=== PATIENT | female | born 1995 | race Caucasian/White ===

== ENCOUNTER 2017-06-14 23:11 | Day surgery (SDC) | payer OTHER ==
[~2017-06-14] VITALS: Ht 157.5 cm; Wt 77.3 kg
[2017-06-15] MEDS ORDERED: KETOROLAC 60 MG/2 ML VIAL (J1885) IM ONE (00:15)
[2017-06-15 01:25] LABS: BASO # 0.1 10^3/uL (0.0-0.2); BASO % 0.7 % (0.0-1.0); EOS # 0.1 10^3/uL (0.0-0.50); EOS % 1.2 % (0.0-3.0); IMMATURE GRANULOCYTE % 0.4 % (0-0); LYMPH # 2.5 10^3/uL (1.5-6.5); LYMPH % 29.2 % (24.0-44.0); MEAN CORPUSCULAR HEMOGLOBIN 30.3 pg (27.0-33.0); MEAN CORPUSCULAR HGB CONC 33.7 g/dl (32.0-36.5); MEAN CORPUSCULAR VOLUME 89.8 fl (80.0-96.0); MONO # 0.6 10^3/uL (0.0-0.8); MONO % 6.9 % (0.0-5.0); NEUTROPHILS # 5.2 10^3/uL (1.8-7.7); NEUTROPHILS % 61.6 % (36.0-66.0); PLATELET COUNT, AUTOMATED 262 10^3/uL (150-450); RED CELL DISTRIBUTION WIDTH 12.6 % (11.5-14.5); WHITE BLOOD COUNT 8.4 10^3/uL (4.0-10.0)
[2017-06-15 01:48] LABS: ALBUMIN 3.7 GM/DL (3.2-5.2); ALBUMIN/GLOBULIN RATIO 1.06 (1.00-1.93); ALKALINE PHOSPHATASE 69 U/L (45-117); ALT/SGPT 33 U/L (12-78); ANION GAP 8 MEQ/L (8-16); AST/SGOT 16 U/L (7-37); BILIRUBIN,TOTAL 0.3 MG/DL (0.2-1.0); BLOOD UREA NITROGEN 9 MG/DL (7-18); CARBON DIOXIDE LEVEL 26 MEQ/L (21-32); CHLORIDE LEVEL 109 MEQ/L (98-107); CREATININE FOR GFR 0.65 MG/DL (0.55-1.02); GLOMERULAR FILTRATION RATE > 60.0 (>60); GLUCOSE, FASTING 93 MG/DL (70-105); SODIUM LEVEL 143 MEQ/L (136-145); TOTAL PROTEIN 7.2 GM/DL (6.4-8.2)
--- NOTE | 2017-06-15 03:00 | REPUSA ---
CLINICAL HISTORY: Pain. TECHNIQUE: Realtime sonographic images were obtained in multiple projections. COMMENTS: The liver is demonstrates increased echogenicity compatible with fatty infiltration. Multiple hepatic hypoechoic areas seen measuring 2.2 and 4.2 cm. There is no intra or extrahepatic biliary ductal dilatation. CBD measures mm. The gallbladder is di stended containing gallstones and positive sonographic Jacobo. physiologically distended without evidence of calculi. The gallbladder wall is not thickened measurin g 2 mm and there is no pericholecystic fluid. The right kidney is unremarkable. IMPRESSION: Fatty liver. Cholelithiasis. Possible developing acute cholecystitis. Hypoechoic liver lesions are noted within the abdomen. Focal fatty sparing versus infiltrative liver disease. Thank you for your kind referral of this patient.
[2017-06-15] MEDS ORDERED: NORCO 5/325MG TABLET (BULK FOR ED) PO ONE (04:00)
[2017-06-15] MEDS ORDERED: VICO5TAB16 PO (04:00)
[2017-06-15] MEDS ORDERED: MORPHINE 4 MG/ML 1ML SYRINGE IV ONE (05:00)
[2017-06-15 06:17] LABS: CONTROL LINE HCG INT CTR LINE PRESENT
[2017-06-15] MEDS ORDERED: ONDANSETRON 4MG/2ML VIAL (J2405) IV PRN ×2 (09:15→14:45)
[2017-06-15] MEDS ORDERED: AVIATAB PO (09:25)
[2017-06-15] MEDS ORDERED: ESCI20TA PO (09:25)
[2017-06-15] MEDS ORDERED: UNASYN 3 GM VIAL As Ordered ONE (09:30)
[2017-06-15] MEDS: AMPICILLIN SOD/SULBACTAM SOD 3 GM in D5W MINI-BAG PLUS 100 ML IV SCH ×3 (09:45→21:55)
[2017-06-15] MEDS: LR 1,000 ML IV SCH ×2 (10:05→19:38)
[2017-06-15 10:10] VITALS: BP 120/75
--- NOTE | 2017-06-15 10:15 | HPE ---
DATE OF ADMISSION: 06/15/2017 The patient is being placed on surgical day care status. HISTORY OF PRESENT ILLNESS: The patient is a 21-year-old woman who presented to the emergency department just before midnight on 06/14/2017 complaining of right sided back and flank pain radiating around the front to the level of the umbilicus. She describes that she has had occasional episodes of similar pain over the last few months perhaps. The last episode was on night, 06/13/2017. This began in the evening and lasted for 6 or 7 hours overnight. She did have some associated nausea, but no vomiting. The pain had resolved by about 6 o'clock in the morning on the . The patient reports that at about 6:00 p.m. on the , she noted recurrence of the pain. Again, this started in the right side of the back and then radiated around the flank to the right upper quadrant. After tolerating this for approximately 5 hours, she came to the emergency department. She did report some improvement with medications, but as the pain medications wore off the pain returned. She has had some nausea, but no vomiting. She denies any history of jaundice, pancreatitis or hepatitis. She has not been told of gallstones previously. In the emergency department, she had some lab work obtained that was unremarkable. A gallbladder ultrasound shows gallstones. There are two hypoechoic areas within the right lobe of the liver. These are not simple cyst. The gallbladder wall was not particularly thickened at the time of the ultrasound which was obtained after perhaps 6-8 hours of pain. The common bile duct was normal size. As she continues to complain of pain and has some persistent tenderness in the right subcostal area, she is now being brought into the hospital with a diagnosis of acute cholecystitis for treatment with antibiotics and laparoscopic cholecystectomy. ALLERGIES: The patient reports an allergy to LATEX. She reports that perhaps a 10-minute exposure to latex will lead to a rash. She also reports an allergy to PERTUSSIS VACCINE. MEDICATIONS: Her only medications are 20 mg of Lexapro daily and she takes Aviane as a control medication. PAST SURGICAL HISTORY: She had a section in December 2016 and had what she described as a patella replacement in 2014. MEDICAL HISTORY: She has a history of some depression for which she takes her current Lexapro. She denies any other active medical issues. SOCIAL HISTORY: The patient is accompanied to the emergency department by her spouse. Her 5-month-old child was being cared for by her [id number]. The patient is a never smoker and denies any alcohol use. REVIEW OF SYSTEMS: Reveals no history of chest pains or palpitations. She denies cough, wheezing or sputum production. She has no history of seizures, stroke or severe headaches. She denies any dysuria, hematuria or renal stones. She has not had any chronic diarrhea, constipation or rectal bleeding. There are no significant bone or joint issues at this time. She denies any history of deep vein thrombosis (DVT) or pulmonary embolus. PHYSICAL EXAMINATION: The patient's most recent vital signs show that she has been afebrile. Her pulse has been in the 80s to 90s. Blood pressure is normal. She is alert and oriented. She appears somewhat uncomfortable sitting on the ER stretcher. She reports that the pain medication has been wearing off and she has one hand pressed to her right upper quadrant and is rocking quietly on the side of the stretcher. Sclerae are anicteric. Mucous membranes are somewhat tacky. The neck is supple without mass or bruit. Heart exam shows a regular rhythm. The lungs are clear. The abdomen is mildly obese. She has some striae present. She has some bowel sounds. The abdomen is soft throughout. There is some mild tenderness to percussion in the right subcostal area. With palpation, there is some mild referred tenderness from the left upper quadrant to the right upper quadrant. She has moderate direct tenderness in the right subcostal area on palpation. No mass is appreciated. She has no evident hernia. Extremities show no peripheral edema and she has palpable posterior tibial pulses bilaterally and palpable radial pulses bilaterally. LABORATORY STUDIES: Her CBC from 1 o'clock in the morning shows a white count of 8.4 with a differential showing 62% neutrophils, 29% lymphocytes and 7% monocytes. Hemoglobin is 14 with a hematocrit of 41 and the platelet count is 262,000. Urinalysis shows no evidence for a urinary tract infection. Chemistries show a sodium of 143, potassium 4.0, chloride 109, CO2 of 26, BUN of 9, creatinine 0.6 and a glucose of 93. Liver function tests are normal with a total protein of 7.2 and an albumin of 3.7. Lipase is normal at 145. She had an hCG which was negative. Gallbladder ultrasound, I reviewed personally. She has definite stones layering within the gallbladder. The gallbladder wall was not thickened at the time of the study. The gallbladder is somewhat full. There are two abnormal areas within the liver which the radiologist described as hypoechoic, possibly representing focal fatty sparing versus other. IMPRESSION: 1. Acute cholecystitis secondary to cholelithiasis. 2. History of depression, on medication. 3. Hypoechoic liver lesions requiring further study. PLAN: The patient and I discussed options for treatment. She appears to be uncomfortable enough to warrant admission to the hospital. I will start her on Unasyn and then make plans for a laparoscopic cholecystectomy, which I would hope to accomplish later today. She was counseled for the surgery to include the risks and possible benefits. She will be kept nothing by mouth (n.p.o.) for now with IV fluid. We will apply some thromboembolic deterrent stockings (TEDS) on admission and use sequential stockings in the operating room for DVT prophylaxis.
[2017-06-15] MEDS: MORPHINE 2 MG/ML 1ML SYRINGE IV PRN ×3 (10:32→19:02)
[2017-06-15] MEDS: KETOROLAC 30 MG/ML VIAL (J1885) IV PRN ×2 (10:32→19:02)
[2017-06-15 11:52] LABS: ALBUMIN 3.5 GM/DL (3.2-5.2); ALBUMIN/GLOBULIN RATIO 1.13 (1.00-1.93); ALKALINE PHOSPHATASE 52 U/L (45-117); ALT/SGPT 31 U/L (12-78); ANION GAP 7 MEQ/L (8-16); AST/SGOT 18 U/L (7-37); BILIRUBIN,TOTAL 0.4 MG/DL (0.2-1.0); BLOOD UREA NITROGEN 8 MG/DL (7-18); CALCIUM LEVEL 8.6 MG/DL (8.5-10.1); CARBON DIOXIDE LEVEL 25 MEQ/L (21-32); CHLORIDE LEVEL 110 MEQ/L (98-107); GLOMERULAR FILTRATION RATE > 60.0 (>60); GLUCOSE, FASTING 85 MG/DL (70-105); POTASSIUM SERUM 3.9 MEQ/L (3.5-5.1); SODIUM LEVEL 142 MEQ/L (136-145); TOTAL PROTEIN 6.6 GM/DL (6.4-8.2)
[2017-06-15] MEDS ORDERED: BUPIVACAINE HCL 0.25% 30 ML VIAL As Ordered ONE (12:42)
[2017-06-15] MEDS ORDERED: fentaNYL 100 MCG/2 ML INJECTION (J3010) As Ordered ONE ×2 (12:52→12:56)
[2017-06-15] MEDS ORDERED: LIDOCAINE 2% INJ 100 MG/5 ML SDV (FOR ANES.) As Ordered ONE (12:52)
[2017-06-15] MEDS ORDERED: ROCURONIUM BROMIDE 50 MG/5 ML VIAL As Ordered ONE (12:52)
[2017-06-15] MEDS ORDERED: MIDAZOLAM INJ 2 MG/2 ML VIAL (J2250) As Ordered ONE (12:52)
[2017-06-15] MEDS ORDERED: PROPOFOL 200 MG/20 ML VIAL As Ordered ONE (12:52)
[2017-06-15] MEDS ORDERED: dexameTHASONE 4 MG/ML 1ML VIAL (J1100) As Ordered ONE (13:08)
[2017-06-15] MEDS ORDERED: KETOROLAC 60 MG/2 ML VIAL (J1885) As Ordered ONE (13:29)
[2017-06-15] MEDS ORDERED: NEOSTIGMINE 10 MG/10 ML VIAL (J2710) As Ordered ONE (13:29)
[2017-06-15] MEDS ORDERED: ONDANSETRON 4MG/2ML VIAL (J2405) As Ordered ONE (13:29)
[2017-06-15] MEDS ORDERED: GLYCOPYRROLATE INJ 0.2 MG/ML 2 ML VIAL As Ordered ONE (13:29)
[2017-06-15] MEDS ORDERED: fentaNYL 100 MCG/2 ML INJECTION (J3010) IV PRN (14:45)
[2017-06-15] MEDS ORDERED: LR 1,000 ML IV SCH (14:45)
[2017-06-15] MEDS ORDERED: MORPHINE 10 MG/ML 1ML VIAL IV PRN (14:45)
[2017-06-15] MEDS ORDERED: ACETAMINOPHEN TAB 650MG DOSE (2X325MG) PO PRN (14:45)
[2017-06-15 15:00] VITALS: BP 120/61
[2017-06-15 15:30] VITALS: BP 120/61
[2017-06-15 16:30] VITALS: BP 120/62
[2017-06-15] MEDS: NORCO, ANEXSIA 5/325MG TABLET (HYDROcodone/ACETAMINOPHEN) PO PRN ×2 (18:20→22:53)
[2017-06-15 20:00] VITALS: BP 126/71
[2017-06-15] MEDS ORDERED: ESCITALOPRAM OXALATE 10 MG TAB (LEXAPRO) PO SCH (21:00)
[2017-06-16] VITALS: BP 112/58
[2017-06-16] MEDS: LR 1,000 ML IV SCH (01:30)
[2017-06-16 04:00] VITALS: BP 110/55
[2017-06-16] MEDS: AMPICILLIN SOD/SULBACTAM SOD 3 GM in D5W MINI-BAG PLUS 100 ML IV SCH (04:08)
--- NOTE | 2017-06-16 07:34 | RO ---
DATE OF PROCEDURE: 06/15/2017 PREOPERATIVE DIAGNOSIS: Acute cholecystitis. POSTOPERATIVE DIAGNOSES: Acute cholecystitis with hydrops of the gallbladder. PROCEDURE PERFORMED: Laparoscopic cholecystectomy. SURGEON: Dr. Casimiro Salazar ANESTHESIA: General. INDICATIONS FOR THE PROCEDURE: Patient is a 21-year-old woman who presented to the emergency department with a history of right back pain radiating around the right flank to the right upper quadrant. Her pain had persisted overnight. Her laboratory studies were unremarkable, but a gallbladder ultrasound revealed gallbladder wall thickening with sludge and a distended gallbladder. Patient's clinical history and lab findings were felt to be consistent with acute cholecystitis, and she is now for laparoscopic cholecystectomy. DESCRIPTION OF PROCEDURE: Operative procedure: The patient was placed under general endotracheal anesthesia. The patient's abdomen was prepped and draped in a sterile fashion. 0.25% Marcaine was infiltrated at each of the trocar sites. A short supraumbilical midline incision was made and deepened through the subcutaneous tissues. The fascia was opened in the midline and the peritoneum was opened bluntly. A Gil cannula was inserted, and the abdomen was insufflated with carbon dioxide gas. The laparoscope was placed. Initial examination showed omentum up over the right side of the liver. The patient was tilted to a reverse Trendelenburg position and rolled to the left. A 5 mm trocar was placed in left upper quadrant. The omentum was pulled down away from the liver. The gallbladder was seen to be encased in a thin layer of omentum which was densely adherent. The gallbladder itself appeared quite edematous and inflamed and was tensely distended. Two 5 mm trocars were placed in the right upper quadrant. Using the hook cautery, the omentum was peeled away from the gallbladder as much as possible. Small portions of the omentum were left adherent where it was densely attached. I attempted to aspirate the gallbladder to make manipulation easier, and some watery, faintly milky colored fluid was aspirated. Perhaps 50-60 mL of fluid was aspirated. The gallbladder was then grasped and elevated. Using the hook cautery, the peritoneum was opened. The cystic duct was identified first lying more anteriorly. This was cleared of some surrounding fibrofatty tissue. The cystic duct was doubly clipped with hemoclips and divided. With further dissection an artery was identified coming up the left side of the gallbladder, and this was doubly clipped and divided as well. The gallbladder was then dissected free from the gallbladder bed using the spatula cautery. About mcc up the gallbladder body, another artery was identified coming up to the gallbladder and this was clipped and divided as well. The gallbladder was freed from the gallbladder bed. Dissection was slowed significantly by the marked edema of the gallbladder wall. The gallbladder was placed in an Endopouch. The right upper quadrant was irrigated and inspected. There was no evidence of any bleeding or bile leak. The patient was returned to a flat position. The abdomen was deflated and the trocars were all removed. The gallbladder was recovered through the Gil site. The fascia at the Gil site was closed with interrupted simple sutures of 2-0 Vicryl. The skin incisions were all closed with buried 5-0 Vicryl and Steri-Strips. Light dressings were applied. The patient tolerated the procedure well without apparent complication. She was awakened in the operating room, extubated and moved to the recovery room in stable condition. SHRUTHI
[2017-06-16] MEDS ORDERED: IBUPROFEN 600 MG TAB PO PRN (08:45)
[2017-06-16 09:20] VITALS: BP 106/55
[2017-06-16] MEDS: NORCO, ANEXSIA 5/325MG TABLET (HYDROcodone/ACETAMINOPHEN) PO PRN (09:22)
--- NOTE | 2017-06-16 13:33 | IPN ---
DATE: 06/16/2017 HISTORY: The patient is now postoperative day #1 from a laparoscopic cholecystectomy for acute cholecystitis. VITAL SIGNS: She has been afebrile since surgery. Most recent pulse is 73 with a blood pressure of 106/55. INTAKE AND OUTPUT: The patient has been taking a diet well with no nausea or vomiting and her urine output is adequate. PHYSICAL EXAMINATION: The patient is sitting up in the bed appearing comfortable. She denies any significant discomfort. Skin is warm and dry. Heart exam shows a regular rhythm and she is not tachycardiac. The abdomen is soft. Her incisions are all clean and dry with Steri-Strips in place. IMPRESSION: Excellent postoperative result from laparoscopic cholecystectomy for acute cholecystitis. PLAN: The patient will be discharged today. She has taken only a couple of [place] since surgery and after discussion she agrees that she will get by with Tylenol and ibuprofen at home. She could take a diet as tolerated. I have asked to follow up with me in about 10 days to 2 weeks. She can shower later today when she is 24 hours out from surgery. She should call for any problems.
== END 2017-06-16 13:30 | disposition home or self-care (01) ==
LOC: M ED 23:11 → M SDC 06-15 09:05 → M PED 06-15 10:11 → M SDC 06-16 13:30
PROVIDERS: ATTEND Surgery
DX: K80.00 Calculus of gallbladder with acute cholecystitis without obstruction (principal); K82.1 Hydrops of gallbladder; F32.9 Major depressive disorder, single episode, unspecified; Z79.899 Other long term (current) drug therapy; Z88.7 Allergy status to serum and vaccine; Z91.040 Latex allergy status
CPT/HCPCS: 36415; 47562; 76705; 80053; 81001; 83690; 84703; 85025; 87086; 88304; 96365; 96366; 96372; 96375; 96376; 99284; J1100; J1885; J2250; J2405; J2710; J3010

== ENCOUNTER → 2017-08-19 | Outpatient (CLI) | payer OTHER ==
[~2017-08-19] MED LIST: GASTROGRAFIN SOLUTION 30ML (Q9963) As Ordered; ISOVUE-370 76% 100ML VIAL (Q9967) As Ordered
== END ==
LOC: M RAD 12:38
DX: R93.2 Abnormal findings on diagnostic imaging of liver and biliary tract (principal)

== ENCOUNTER → 2017-09-16 | Outpatient (CLI) | payer OTHER ==
[~2017-09-16] MED LIST changes: -GASTROGRAFIN SOLUTION 30ML (Q9963) As Ordered; -ISOVUE-370 76% 100ML VIAL (Q9967) As Ordered; +PROHANCE 279.3MG/ML 15ML VIAL (A9576) As Ordered
== END ==
LOC: M RAD 12:39
DX: K76.89 Other specified diseases of liver (principal); K76.0 Fatty (change of) liver, not elsewhere classified
CPT/HCPCS: A9576

== ENCOUNTER → 2017-12-09 | Outpatient (CLI) | payer OTHER ==
[2017-12-09 12:25] LABS: ALBUMIN 3.7 GM/DL (3.2-5.2); ALBUMIN/GLOBULIN RATIO 0.97 (1.00-1.93); ALKALINE PHOSPHATASE 67 U/L (45-117); ALT/SGPT 37 U/L (12-78); AST/SGOT 24 U/L (7-37); BILIRUBIN,DIRECT < 0.1 MG/DL (0.0-0.2); BILIRUBIN,TOTAL 0.2 MG/DL (0.2-1.0); TOTAL PROTEIN 7.5 GM/DL (6.4-8.2)
== END ==
LOC: M LAB 10:57
DX: K76.89 Other specified diseases of liver (principal)
CPT/HCPCS: 80076

== ENCOUNTER → 2018-10-14 | Outpatient (CLI) | payer OTHER ==
[~2018-10-14] MED LIST changes: +AVIATAB PO; +ESCI20TA PO; -PROHANCE 279.3MG/ML 15ML VIAL (A9576) As Ordered; +VICO5TAB16 PO
--- NOTE | 2018-10-14 14:00 | REP ---
UPPER QUADRANT SONOGRAPHY: HISTORY: Right upper quadrant pain. Previous study showed liver lesions. Comparison CT study August 19, 2017. Comparison MRI exam September 16, 2017. There is a comparison sonography from June 15, 2017. FINDINGS: Scanning through the right upper quadrant of the abdomen is performed. The gallbladder surgically absent. There are two adjacent hypoechoic nodules in the right lobe of the liver again seen. These measure 2.3 x 1.5 x 1.8 cm and 4.3 x 3.0 x 3.5 cm respectively. These are felt to be unchanged from the comparison prior studies. There is a hyperechoic area in the caudate lobe consistent with the area of fatty infiltration seen on sonography and MRI study. This is also unchanged. No other liver lesion is appreciated. Common bile duct is normal measuring 0.4 cm in greatest diameter. No pancreatic abnormality is observed. There is no evidence of ascites or upper abdominal adenopathy. No right renal abnormality is seen. The right kidney measures 10.5 x 5.0 x 3.6 cm. IMPRESSION: Hypoechoic liver mass lesions in the right lobe. Fatty infiltration in the area of the caudate lobe. Findings are unchanged in size from the study done 1 year prior. Consider annual sonographic followup. Electronically Signed by Esteban Dyer MD 10/14/2018 03:05 P
== END ==
LOC: M RAD 09:31
PROVIDERS: ATTEND Surgery
DX: R10.11 Right upper quadrant pain (principal); K76.0 Fatty (change of) liver, not elsewhere classified; K76.89 Other specified diseases of liver

== ENCOUNTER → 2018-10-31 | Outpatient (REF) | payer OTHER ==
[~2018-10-31] MED LIST changes: -VICO5TAB16 PO; +VICO5TAB17 PO
== END ==
LOC: M LAB LCGH 11:37
DX: Z12.4 Encounter for screening for malignant neoplasm of cervix (principal)